=== PATIENT | male | born 1985 | race Hispanic/Latino ===

== ENCOUNTER 2016-05-19 01:56 | Emergency (ER) | payer OTHER ==
[2016-05-19 02:01] VITALS: RESP 16; TEMP 98.4
--- NOTE | 2016-05-19 02:41 | ED PDOC ---
HPI: Psych/Substance Abuse Time Seen by Provider: 05/19/16 02:39 Chief Complaint (Nursing): Alcohol Ingestion Chief Complaint (Provider): etoh History Per: Patient, EMS Additional Complaint(s): Patient arrives with his girlfriend for acute alcohol intoxication. Girlfriend states that patient was out [facility] and drank heavily. When he got home he was vomiting profusely so she called ambulance and was brought here. Patient feels nauseous upon arrival but offers no other complaint. Patient denies any associated drug use this evening. Past Medical History Reviewed: Historical Data, Nursing Documentation, Vital Signs Vital Signs: Last Vital Signs Temp 98.4 F 05/19/16 01:59 Pulse 68 05/19/16 01:59 Resp 16 05/19/16 01:59 BP 150/87 05/19/16 01:59 Pulse Ox 100 05/19/16 01:59 - Medical History PMH: No Chronic Diseases - Surgical History Surgical History: No Surg Hx - Family History Family History: States: No Known Family Hx - Living Arrangements Living Arrangements: With Family - Social History Current smoker - smoking cessation education provided: No Alcohol: Social Drugs: Denies - Home Medications Home Medications: Ambulatory Orders Medication Instructions Recorded No Known Home Med 05/19/16 - Allergies Allergies/Adverse Reactions: Allergies Allergy/AdvReac Type Severity Reaction Status Date / Time No Known Allergies Allergy Verified 05/19/16 01:59 Review of Systems ROS Statement: Except As Marked, All Systems Reviewed And Found Negative Gastrointestinal: Positive for: Vomiting. Negative for: Abdominal Pain Psych: Positive for: Other (etoh) Physical Exam - Reviewed Nursing Documentation Reviewed: Yes Vital Signs Reviewed: Yes - Physical Exam Appears: Positive for: Well, Non-toxic, No Acute Distress Skin: Negative for: Rash Cardiovascular/Chest: Positive for: Regular Rate, Rhythm Respiratory: Positive for: Normal Breath Sounds Gastrointestinal/Abdominal: Positive for: Normal Exam, Soft. Negative for: Tenderness, Distended, Guarding, Rebound Back: Negative for: L CVA Tenderness, R CVA Tenderness Extremity: Positive for: Normal ROM. Negative for: Pedal Edema Neurologic/Psych: Positive for: Alert, Other (intoxicated, answers some questions appropriately) - ECG O2 Sat by Pulse Oximetry: 100 Pulse Ox Interpretation: Normal Medical Decision Making Medical Decision Makin31 year old intoxicated male Plan: IM zofran BAL Fingerstick 128 BAL: 241 6:00 am: Patient feels better after zofran, he is now able tolerate water. Patient stable for discharge home with his girlfriend who is at bedside. Disposition - Clinical Impression Clinical Impression: Alcohol intoxication - Patient ED Disposition Is Patient to be Admitted: No Counseled Patient/Family Regarding: Diagnosis, Need For Followup - Disposition Referrals: [facility] [Outside] Disposition: Routine/Home Disposition Time: 06:16 Condition: STABLE Additional Instructions: Follow up with your primary care doctor. Instructions: Alcohol Intoxication (ED)
[2016-05-19 06:17] VITALS: BP 115/72; PULSE 65
[2016-05-19 06:21] VITALS: O2SAT 100
== END 2016-05-19 06:21 | disposition home or self-care (01) ==
LOC: H.ER 01:56
DX: F10.129 Alcohol abuse with intoxication, unspecified (principal); Y90.8 Blood alcohol level of 240 mg/100 ml or more